=== PATIENT | male | born 1955 | race Hispanic/Latino ===

== ENCOUNTER → 2017-11-24 | Outpatient (CLI) | payer BC ==
--- NOTE | 2017-11-24 19:22 | Diagnostic Imaging Report ---
PROCEDURE: CT CHEST WITHOUT CONTRAST CT scan of the chest WITHOUT intravenous contrast, using standard protocol. TECHNIQUE: The chest was scanned utilizing a multidetector helical scanner from the apex to the level of the adrenal glands. No IV contrast was administered per physician's request. Coronal and sagittal multiplanar reformations were obtained. COMPARISON: None. INDICATIONS: CHRONIC BRONCHITIS FINDINGS: Lack of intravenous contrast limits evaluation of vascular structures and parenchymal findings. Lines/tubes: None. Lungs and Airways: 4.5 x 3.8 x 3.5 cm heterogeneous soft tissue mass in the posterior right lower lobe, extending to the pleural surface (series 2, image 65 and sagittal images 26). This mass has central hypodensity, which may represent necrosis. 3-4 mm pulmonary nodules in the right middle lobe (series 3, image 65). No consolidation. Ill-defined 6.3 x 3.2 x 5.1 cm heterogeneous soft tissue subcarinal mass (series 2, image 46, and sagittal image 55). The right side of this lesion narrows the right bronchus intermedius (series 2, image 43), with apparent intraluminal component. The central portion of this lesion is mildly hypodense, which may represent central necrosis. Pleura: No effusion, or pneumothorax. Heart and mediastinum: The thyroid is unremarkable. Heart size is normal. No pericardial effusion. Atherosclerotic calcification of the aortic valve, coronary arteries and thoracic aorta. Aorta is non-aneurysmal. Main pulmonary artery is normal in caliber. Lymph nodes: Enlarged right upper paratracheal lymph node measuring 1.2 cm in short axis (series 2, image 24). Enlarged right lower paratracheal lymph node, which measures 2.1 cm in short axis (series 2, image 34). There is likely right hilar adenopathy, measuring approximately 1.2 cm in short axis (series 2, image 46). Abdomen: Limited views of the upper abdomen show no abnormality within the visualized spleen, pancreas or left kidney. 0.8 cm, hypodense lesion in hepatic segment VIII (series 2, image 79), which measure fluid density consistent with a simple cyst. The right adrenal gland is unremarkable. The left adrenal gland is not clearly visualized.. Bones: No aggressive lytic lesions. Deformity in the posteromedial aspect of the left 10th and 11th ribs (series 2, images 75 and 87), and lateral ninth rib (series 2, image 86) which are likely old, healed fractures. Soft tissues are unremarkable. IMPRESSION: 1. 4.5 cm heterogeneous soft tissue mass in the posterior right lower lobe, highly suspicious for bronchogenic neoplasm (likely adenocarcinoma). This lesion is amenable to CT-guided biopsy. 2. 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 There is narrowing of the right bronchus intermedius with apparent intraluminal component, suggesting invasion. 3. Enlarged right upper paratracheal, right lower paratracheal, and likely right hilar adenopathy, likely metastatic. Evaluation for other hilar nodes is limited by lack of intravenous contrast. A contrast-enhanced chest CT is recommended for further evaluation. 4. 3-4 mm pulmonary nodules in the right middle lobe, which may be metastatic. Rehan Bermudez M.D. Dictated by: Rehan Bermudez M.D. on 11/24/2017 at 19:27 Electronically approved by: Rehan Bermudez M.D. on 11/24/2017 at 19:27
== END ==
LOC: CT 16:31
PROVIDERS: ATTEND Internal Medicine
DX: J42 Unspecified chronic bronchitis (principal)
CPT/HCPCS: 71250